=== PATIENT | male | born 1965 | race Caucasian/White ===

== ENCOUNTER 2017-02-05 10:05 | Day surgery (SDC) | payer BC ==
--- NOTE | 2017-01-24 10:15 | PAT Medication Instructions ---
Service Date Jan 24, 2017. Current Home Medication List Albuterol Hfa (Ventolin Hfa), 2-4 PUFFS INH Q6H PRN for SOB/Wheezing Atorvastatin (Lipitor), 40 MG PO QPM Cetirizine (Zyrtec), 10 MG PO DAILY PRN for PRN Lansoprazole (Prevacid), 30 MG PO QPM Multivitamin (Multivitamin), 1 TAB PO QPM Medication Instructions For Your Scheduled Surgery - Hold the following medications the morning of surgery: Cetirizine (Zyrtec), 10 MG PO DAILY PRN for PRN - Take the following medications the morning of surgery with a sip of water: Albuterol Hfa (Ventolin Hfa), 2-4 PUFFS INH Q6H PRN for SOB/Wheezing (use if needed/bring with you to hospital on day of surgery) - Take the following medications as scheduled the night before surgery: Lansoprazole (Prevacid), 30 MG PO QPM Multivitamin (Multivitamin), 1 TAB PO QPM Atorvastatin (Lipitor), 40 MG PO QPM Albuterol Hfa (Ventolin Hfa), 2-4 PUFFS INH Q6H PRN for SOB/Wheezing (if needed) If you have any questions please call us at [phone] or [phone] ( [place]) or [phone]
[2017-01-24 10:49] LABS: BASO % 0.8 %; BASO ABS # 0.08 K/uL (0-0.2); COMPLETE YES; EOS % 4.5 %; HEMATOCRIT 39.3 % (42-52); IG% 0.2 %; LYMPH % 43.2 %; LYMPH ABS # 4.16 K/uL (1.2-3.4); MEAN CELL VOLUME 83.8 fL (80-100); MEAN CORPUSCULAR HEMOGLOBIN 31.6 pg (25-34); MEAN CORPUSCULAR HGB CONC 37.7 g/dl (32-36); MEAN PLATELET VOLUME 9.9 fL (7.4-10.4); MONO % 9.3 %; PLATELET COUNT 329 K/uL (130-400); RED BLOOD COUNT 4.69 M/uL (4.7-6.1); WHITE BLOOD COUNT 9.62 K/uL (4.8-10.8)
[2017-01-24 10:50] LABS: URINE APPEARANCE CLEAR (CLEAR); URINE BILIRUBIN NEG (NEG); URINE COLOR YELLOW; URINE NITRITE NEG (NEG); URINE SPECIFIC GRAVITY 1.021 (1.000-1.030); UROBILINOGEN NEG (NEG)
[2017-01-24 10:54] LABS: MANUAL MICROSCOPIC REQUIRED? NO; REVIEW REQ? NO
--- NOTE | 2017-01-24 11:21 | DIAGNOSTIC IMAGING REPORT ---
TWO VIEW CHEST CLINICAL HISTORY: Preoperative examination. FINDINGS: PA and lateral chest radiographs are obtained. No prior studies are available for comparison at the time of dictation. The cardiomediastinal silhouette is unremarkable. The lungs and pleural spaces are clear. There is no pneumothorax. The bony thorax appears intact. IMPRESSION: No active disease in the chest. Electronically signed by: Jon Saunders M.D. 01/24/2017 11:18 AM Dictated Date/Time: 01/24/2017 11:18 AM
[~2017-02-05] VITALS: Ht 190.5 cm; Wt 108.5 kg
[~2017-02-05 10:05] MED LIST: ATOR-24 PO; CEFAZOLIN 2000 MG/60 ML D5W IV SCH; CETI10TA84 PO; LACTATED RINGER'S 1000ML 1,000 ML IV SCH; LANS30CA12 PO; MULT-506 PO; VNTHFA/IN INH
[2017-02-05 10:20] VITALS: BP 143/92; PULSE 73; TEMP 36.4; O2SAT 97; Ht 190.5 cm; Wt 108.5 kg
--- NOTE | 2017-02-05 11:42 | History & Physical Bridge Note ---
H&P Re-Evaluation Bridge Note: I have examined the patient, reviewed the History & Physical and in the interval since the performance of the History & Physical I have noted the following changes of clinical significance: No changes noted Left varicocelectomy and b/l vasectomy
[2017-02-05] MEDS ORDERED: LIDOCAINE HCL 2% 2 ML VIAL (20MG/ML) ONE (11:59)
[2017-02-05] MEDS ORDERED: NEOSTIGMINE METHYLSULFATE 5 MG/5 ML SYR ONE (11:59)
[2017-02-05] MEDS ORDERED: DEXAMETHASONE SOD INJ 4 MG/ML VIAL ONE (11:59)
[2017-02-05] MEDS ORDERED: GLYCOPYRROLATE INJ 0.2 MG/ML VIAL ONE (11:59)
[2017-02-05] MEDS ORDERED: ONDANSETRON INJ 2 MG/ML 2 ML VIAL ONE (11:59)
[2017-02-05] MEDS ORDERED: ROCURONIUM BROMIDE 10 MG/ML 5 ML VIAL ONE ×2 (11:59→13:19)
[2017-02-05] MEDS ORDERED: PROPOFOL IV EMULSION 10 MG/ML 20 ML VIAL IV ONE (11:59)
[2017-02-05] MEDS ORDERED: FENTANYL CITRATE INJ 50 MCG/1 ML 2 ML VIAL ONE ×3 (12:00→13:50)
[2017-02-05] MEDS ORDERED: MIDAZOLAM HCL 1 MG/ML 2ML VIAL ONE (12:00)
[2017-02-05] MEDS ORDERED: BUPIVACAINE 0.5 % 5 MG/1 ML MPF 30ML VIAL ONE (12:09)
[2017-02-05] MEDS ORDERED: DOCU-94 PO (13:39)
[2017-02-05] MEDS ORDERED: OXYC-57 PO (13:39)
--- NOTE | 2017-02-05 13:42 | [facility] Post Operative Brief Note ---
Immediate Operative Summary Operative Date Feb 05, 2017. Pre-Operative Diagnosis Left Varicocele, Elective Sterilization Post-Operative Diagnosis Left Varicocele, Elective Sterilization Procedure(s) Performed Bilateral Laparoscopic Vasectomy, Left Laparoscopic Varicocelectomy Surgeon Dr. Ma [employer] Surgeon(s) BORA Krishna Estimated Blood Loss 10 cc Findings Small, b/l inguinal hernias. 2 major venous branches coming together just above the right internal ring. Easily identified vasa b/l. Specimens A: Right Vas Deferens B: Left Vas Deferens Drains none Anesthesia Gen Complication(s) None Disposition Recovery Room / PACU (stable)
--- NOTE | 2017-02-05 13:42 | Discharge Instructions ---
Discharge Instructions Date of Service Feb 05, 2017. Admission Reason for Admission: Varicocele Discharge Discharge Diagnosis / Problem: Varicocele, desire for sterilization Discharge Goals Goal(s): Decrease discomfort, Therapeutic intervention Activity Recommendations Activity Limitations: as noted below Lifting Limitations: no more than 25 pounds (x 6 weeks) Exercise/Sports Limitations: rest today, until after follow-up appointment ( Light activity x 4-6 weeks) May Resume Sexual Activity: after follow-up appointment (when cleared by Dr. Ma) Shower/Bathe: tomorrow Driving or Machine Use: resume 3 days after discharge (Do not drive while taking narcotics. ) . Discharge Diet Recommended Diet: Regular Diet Procedures Procedures Performed: Bilateral Laparoscopic Vasectomy, Left Laparoscopic Varicocelectomy Pending Studies Studies pending at discharge: no Medical Emergencies . Who to Call and When: Medical Emergencies: If at any time you feel your situation is an emergency, please call 911 immediately. . Non-Emergent Contact Non-Emergency issues call your: Urologist Call Non-Emergent contact if: temperature is above 101.5, your pain is not controlled, your pain is worsening, your pain is unusual for you, your pain is concerning you, you have any medication questions . . "Provider Documentation" section prepared by Serina Alcantar. . VTE Core Measure Inpt VTE Proph given/why not?: [facility]CD[place] Drug Monitoring Program Search Results: patient reviewed within database, no issues identified
[2017-02-05] MEDS ORDERED: OXYCODONE/ACETAMINOPHEN 5-325 TAB PO PRN (13:45)
[2017-02-05] MEDS ORDERED: NALOXONE HCL 0.4 MG/1 ML VIAL/CARP IV PRN (14:00)
[2017-02-05] MEDS ORDERED: EpHEDrine SULFATE INJ 50 MG/ML AMP IV PRN (14:00)
[2017-02-05] MEDS ORDERED: PROMETHAZINE HCL INJ 12.5 MG in SODIUM CHLORIDE 0.9% 50ML 50 ML IV PRN (14:00)
[2017-02-05] MEDS ORDERED: ATROPINE SULFATE 0.1 MG/ML 5ML SYR IV PRN (14:00)
[2017-02-05] MEDS ORDERED: ONDANSETRON INJ 2 MG/ML 2 ML VIAL IV PRN (14:00)
[2017-02-05] MEDS ORDERED: KETOROLAC TROMETHAMINE 30 MG/ML VIAL ONE (14:03)
[2017-02-05] MEDS: HYDROmorphone INJ 1 MG/ML SYR IV PRN ×2 (14:17→14:22)
--- NOTE | 2017-02-05 14:42 | Anesthesiology Progress Note ---
Anesthesia Post Op Note Date & Time Feb 05, 2017 at 14:42 Vital Signs Pain Intensity: 1 Vital Signs Past 12 Hours Date Time Temp Pulse Resp B/P Pulse Ox O2 Delivery O2 Flow Rate FiO2 02/05/17 14:33 36.5 61 16 115/73 95 Room Air 0 02/05/17 14:31 121/80 02/05/17 14:29 67 21 02/05/17 14:29 69 21 96 02/05/17 14:26 125/77 02/05/17 14:24 62 12 97 02/05/17 14:24 64 12 02/05/17 14:20 127/87 02/05/17 14:19 63 21 96 02/05/17 14:19 64 21 02/05/17 14:18 61 12 97 02/05/17 14:18 61 12 02/05/17 14:15 122/88 02/05/17 14:13 62 15 02/05/17 14:13 62 15 97 02/05/17 14:10 124/85 02/05/17 14:08 66 17 02/05/17 14:08 66 17 97 02/05/17 14:06 122/87 02/05/17 14:03 64 20 100 02/05/17 14:03 64 20 02/05/17 14:02 60 24 100 02/05/17 14:02 60 24 100 02/05/17 14:02 60 24 02/05/17 14:02 60 24 02/05/17 14:00 131/89 02/05/17 14:00 131/89 02/05/17 13:57 56 19 100 02/05/17 13:57 57 19 02/05/17 13:57 57 19 02/05/17 13:57 56 19 100 02/05/17 13:56 132/93 02/05/17 13:56 132/93 02/05/17 13:52 56 23 100 02/05/17 13:52 56 23 02/05/17 13:52 56 23 100 02/05/17 13:52 56 23 02/05/17 13:50 149/100 02/05/17 13:50 149/100 02/05/17 13:48 154/113 02/05/17 13:48 154/113 02/05/17 13:47 58 21 100 02/05/17 13:47 58 21 02/05/17 13:47 58 21 02/05/17 13:47 36.2 57 18 149/100 100 Mask 10 02/05/17 13:47 58 21 100 02/05/17 10:20 36.4 73 18 143/92 97 Room Air Notes Mental Status: alert / awake / arousable, participated in evaluation Pt Amnestic to Procedure: Yes Nausea / Vomiting: adequately controlled Pain: adequately controlled Airway Patency, RR, SpO2: stable & adequate BP & HR: stable & adequate Hydration State: stable & adequate Anesthetic Complications: no major complications apparent
[2017-02-05 15:50] VITALS: BP 131/88; PULSE 66; TEMP 36.6; O2SAT 96
--- NOTE | 2017-02-05 16:04 | OPERATIVE REPORT ---
DATE OF OPERATION: 02/05/2017 PREOPERATIVE DIAGNOSIS: Left varicocele and elective sterilization. POSTOPERATIVE DIAGNOSIS: Left varicocele and elective sterilization. PROCEDURE PERFORMED: Laparoscopic left varicocelectomy and bilateral vasectomy. ANESTHESIA: General. ESTIMATED BLOOD LOSS: 5 mL. URINE OUTPUT: Not recorded. COMPLICATIONS: There were no complications. SPECIMEN: 1. Left vas deferens for routine pathology. 2. Right vas deferens for routine pathology. DESCRIPTION OF THE PROCEDURE: Tian Wellington was identified in the preoperative holding area. Appropriate informed consents reviewed and completed and the patient was transported to the operating suite. Upon arrival, he received appropriate preoperative antibiotics in the form of Ancef. Adequate general anesthesia was achieved, and he was placed in the supine position now with a slight Trendelenburg tilted the bed. To begin the case, I passed a Veress needle per umbilicus. There was a somewhat high opening pressure, and I withdrew the Veress needle. I then made a small incision on the right lateral border of the rectus muscle just below the level of the umbilicus and utilizing a 5-mm port made a gasless entry with a 5 mm 0 degrees lens. Inspection revealed a clean path into the peritoneum and insufflation was achieved at that time opening the abdomen. Inspection back to the site of my prior Veress passage revealed a small amount of fat underneath the umbilicus which likely encapsulated the tip of the Veress. There was no evidence of any other Veress trauma or bleeding. There was no significant adhesive disease from his prior midline laparotomy. After insufflating the abdomen, I proceeded to place a port in the infraumbilical location, this was an additional 5-mm port as well as a second right lower quadrant port approximately 8 cm below my first entry point. This was additionally a 5-mm port. At that time, I turned my attention towards the left internal inguinal ring and surrounding structures. I was able to easily identify the vein just above the internal ring as well as the vas moving from the ring medially. I noted that he has a small direct hernia at this time with no evidence of any intra-abdominal contents herniating through it. I made a small incision in the peritoneum overlying the vein exposing approximately 3 cm to 4 cm worth of true vein. There seemed to be 2 prominent branches protruding through the inguinal ring coming together just above the ring. I placed clips distally across both branches and proximally across the main combined branch. I used hot scissors to transect this vein just above my distal clips. There was excellent hemostasis with this. There was a visible pulsation just medial to the area that I had dissected and this was preserved. I then turned my attention to the left-sided vasectomy. I continued my peritoneotomy in this area until I exposed the vas itself. I dissected approximately 5 cm of vas and then lifted it out of its gambell position. I was able to place clips on the testicular side as well as on the prostatic side utilizing a laparoscopic clip home care rn. I then used the cold scissors to transect a piece of approximately 2 cm in length between the 2 sets of clips. There was a small amount of venous oozing from after cutting, I was able to control this with cautery to the open tips of the vasa proximally and distally and the surrounding structures. There was excellent hemostasis. I then turned my attention to the right internal inguinal ring. We then utilized the same laparoscopic ports and I was able to easily identify again the ring itself as well as a small right direct inguinal hernia. Again, there was no evidence of any intra-abdominal contents herniating through this, but it clearly had a small depression. I was able to identify the vas protruding from the ring medially towards the prostate. I again performed a peritoneotomy in this location and exposed approximately 5 cm of vas. After skeletonizing it, I placed clips proximally and distally and divided between the two while transecting a small segment of the vas. These cauterized to confirm excellent hemostasis as well as to seal the cut ends of the vas. Both of these specimens were withdrawn through one of the assignment desk assistant ports. I confirmed excellent hemostasis by dropping the pneumo pressure to 5 mmHg before withdrawing the ports and concluding the case. I closed all of the laparoscopic ports with 4-0 Monocryl and Dermabond. I did infiltrate all ports with 0.5% Marcaine prior to closure. At the conclusion of the case, the patient was extubated and taken to the PACU in stable condition and there were no complications. I attest to the content of the Intraoperative Record and any orders documented therein. Any exceptio ns are noted below.
== END 2017-02-05 16:10 | disposition home or self-care (01) ==
LOC: C.ACU 10:05
PROVIDERS: ATTEND Urology
DX: I86.1 Scrotal varices (principal); Z30.2 Encounter for sterilization; Z91.013 Allergy to seafood; Z90.89 Acquired absence of other organs; Z68.30 Body mass index [BMI] 30.0-30.9, adult; E66.9 Obesity, unspecified; Z87.891 Personal history of nicotine dependence